=== PATIENT | male | born 1980 | race Caucasian/White ===

== ENCOUNTER 2023-07-14 22:37 | Emergency (ER) | payer BC, MEDICAID ==
[2023-07-14] MEDS: Lidocaine 4% 1 each Patch TOP STA (23:18)
[2023-07-14] MEDS: Baclofen 10 MG Tab PO ONE (23:19)
[2023-07-14] MEDS: Ketorolac 30 MG/ML SDV IVPUSH ONE (23:22)
== END 2023-07-15 02:10 | disposition home or self-care (01) ==
LOC: FB.ED 22:37
DX: M54.50 Low back pain, unspecified (principal); F17.210 Nicotine dependence, cigarettes, uncomplicated
CPT/HCPCS: 73502; 96374; 99283; 99284; A9270; J1885